=== PATIENT | male | born 1955 | race Caucasian/White ===

== ENCOUNTER 2018-09-22 09:29 | Day surgery (SDC) | payer OTHER ==
[2018-09-18 13:10] VITALS: BMI 23.1
[2018-09-22] MEDS ORDERED: PROPOFOL 20 ML ONE ×2 (10:43)
[2018-09-22 11:14] VITALS: TEMP 97.8
[2018-09-22 11:42] VITALS: BP 134/76; PULSE 83
--- NOTE | 2018-09-24 18:40 | PATH ---
Surgical Pathology Report Patient Name: DORA VICENTE [facility]. Rec. #: [id number] /Age/Gender: 1955 (Age: 63) / M Account: [id number] [facility]: 09/22/2018 Received: 09/22/2018 Reported: 09/24/2018 Physicians: Pérez Celis M.D. Specimen(s) Received POLYP RECTOSIGMOID Clinical History Rule out colon cancer, screening Postoperative diagnosis: Polyp Final Diagnosis RECTOSIGMOID COLON, POLYP, BIOPSY: POLYPOID COLONIC MUCOSA WITHOUT SIGNIFICANT PATHOLOGIC FINDINGS. Electronically Signed Yessica Lancaster M.D. Gross Description Received in formalin, labeled "polyp rectosigmoid" are 2 serrano, irregular portions of soft tissue measuring 0.1 and 0.3 cm. in greatest dimension. The specimens are submitted in toto in one cassette. /09/23/201809/23/2018
== END 2018-09-22 11:45 | disposition home or self-care (01) ==
LOC: FASU-ENDO 09:29
PROVIDERS: ATTEND Internal Medicine Gastroenterology
PROC: 0DBN8ZX Excision of Sigmoid Colon, Via Natural or Artificial Opening Endoscopic, Diagnostic (ICD-10-PCS; principal; 2018-09-22 10:53)
DX: Z12.11 Encounter for screening for malignant neoplasm of colon (principal); D12.7 Benign neoplasm of rectosigmoid junction
CPT/HCPCS: 88305-TC